=== PATIENT | male | born 1975 | race Hispanic/Latino ===

== ENCOUNTER 2019-11-14 19:03 | Emergency (ER) | payer SELFPAY ==
[~2019-11-14] VITALS: Ht 170.2 cm; Wt 90.7 kg
[~2019-11-14 19:03] MED LIST: ALBUTEROL SULF8.5 GM INH; LEVAQUIN500 MG PO; MEDROL4 MG/DOSE- PO
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
[2019-11-14] MEDS ORDERED: CYCLOBENZAPRINE10 MG PO (20:28)
== END 2019-11-14 20:48 | disposition home or self-care (01) ==
LOC: FSED 19:55
DX: S13.4XXA Sprain of ligaments of cervical spine, initial encounter (principal); R51 Headache; V53.5XXA Driver of pick-up truck or van injured in collision with car, pick-up truck or van in traffic accident, initial encounter; Y92.488 Other paved roadways as the place of occurrence of the external cause; E11.9 Type 2 diabetes mellitus without complications
CPT/HCPCS: 99282